=== PATIENT | female | born 1960 | race American Indian/Alaskan Native ===

== ENCOUNTER 2023-11-20 16:46 | Outpatient (CLI) | payer MEDICARE, MEDICAID, SELFPAY | END 2023-11-20 16:47 | disposition home or self-care (01) | LOC: AMB 11-25 07:01 | PROVIDERS: PCP Family Medicine; Visit Provider Student in an Organized Health Care Education/Training Program | DX: E16.2 Hypoglycemia, unspecified (principal); R53.83 Other fatigue | CPT/HCPCS: A0425; A0427 ==

== ENCOUNTER 2023-11-20 17:55 | Emergency (ER) | payer MEDICARE, MEDICAID, SELFPAY ==
[2023-11-20] VITALS (19 sets, daily range): BP systolic 128–172; BP diastolic 61–82; PULSE 87–102; RESP 18; TEMP 35.9; O2SAT 94–100
--- NOTE | 2023-11-20 19:01 | CRLHL7_ITS ---
For Patients: As a result of the Century Cures Act, medical imaging exams and procedure reports are released immediately into your electronic medical record. You may view this report before your referring provider. If you have questions, please contact your health care provider. INDICATION: Altered mental status. TECHNIQUE: Noncontrast CT images of the brain. COMPARISON: None. FINDINGS: Extensive beam hardening artifact secondary to hearing devices attached to the parieto-occipital calvarium bilaterally limits evaluation. Mild diffuse cerebral volume loss. No mass effect or midline shift. The childers-white differentiation is maintained. No large acute intracranial hemorrhage within exam limitations. No pathologic extra-axial fluid collection. Patchy hypoattenuation in the supratentorial white matter, suggestive of [id number] chronic microvascular ischemic changes. Atherosclerotic calcifications in the carotid siphons. Thinning of the ocular lenses. No calvarial fracture. The visualized paranasal sinuses are clear. Postsurgical changes of right canal wall down mastoidectomy. The left mastoid air cells and middle ear cavity are severely opacified. IMPRESSION: 1. Extensive beam hardening artifact secondary to hearing devices attached to the parieto-occipital calvarium bilaterally limits evaluation. No large acute intracranial hemorrhage within exam limitations. 2. Postsurgical changes of right canal wall down mastoidectomy. The left mastoid air cells and middle ear cavity are severely opacified. Please note that all CT scans at this facility use dose modulation, iterative reconstruction, and/or weight-based dosing when appropriate to reduce radiation dose to as low as reasonably achievable. Dictated by Mark Mcfarland MD @ 11/20/2023 8:00:07 PM (Electronically Signed)
[2023-11-20 19:14] LABS: Glucose, Point-of-Care* 222 mg/dl (60-115)
[2023-11-20 19:20] LABS: HCO3 VBG 24 mmol/L (21-28); PCO2 VBG 49 mmHG (40-50); PO2 VBG 30.3 mmHG (25-47); pH VBG 7.292 (7.32-7.43)
[2023-11-20 19:22] LABS: Basophils Percent Auto 0.1 % (0.0-3.0); Eosinophils Percent Auto 0.1 % (0.0-7.0); Hematocrit 41.9 % (33.0-51.0); Hemoglobin* 14.3 gm/dL (12.0-16.0); Immature Granulocytes Pct Auto 0.5 %; Lymphocytes Percent Auto 9.2 % (20-44); Mean Corpuscular HGB Conc 34 gm/dL (32-36); Mean Corpuscular Hemoglobin 31 pg (26-34); Mean Corpuscular Volume 90 fL (80-100); Monocytes Percent Auto 6.2 % (0.0-11.0); Neutrophils Percent Auto 83.9 % (42.0-72.0); Platelet Count* 336 K/uL (140-440); RDW Coefficient of Variation % 13.5 % (11.5-15.5); Red Blood Count 4.66 m/uL (4.00-5.20)
[2023-11-20 19:23] LABS: Lactate* 2.3 mmol/L (0.5-1.9)
[2023-11-20 19:45] LABS: Slide Review Reflex Yes; White Blood Count* 25.92 K/uL (4.50-11.00)
--- NOTE | 2023-11-20 20:21 | ED.GENADULT ---
HPI - General Adult General Chief complaint: Diabetic Related Problem Stated complaint: Hypoglycemic, blood glucose low Time Seen by Provider: 11/20/23 18:03 History of Present Illness HPI narrative: History limited by patient altered mental status. This is a 63-year-old female with a history insulin-dependent type 2 diabetes, also dementia, also distant history of substance abuse. She is brought to the ER today by EMS and accompanied by her senior care staff member. She lives at a senior care in [place]. She has been here in [place] since Sunday (for the past 3 days) visiting her long-term boyfriend, Loy. Today her senior care staff member was coming to pick her up . Her senior care staff member, Billie, called LOY when he was leaving [place]. At that time apparently everything was normal. When the senior care staff member got here to [place] he called LOY, and at that time LOY reported the patient was having trouble with low blood sugar. Truly was trying to get her to eat some peanut butter toast but her sugar was not coming up. The senior care staff member to would went to get her a liquid oral glucose source. They gave her that and she still did not improve her mental status. They called 911. 911 responded. They found patient to be altered. Her blood sugar was 46. EMS established an IV and gave her D50. Blood sugar came up to the 120s. There was some delay on scene because the patient was not able to ambulate. EMS stated called a 2nd grew to help transfer the patient down a flight of steps and [facility]. In route the patient was confused, drowsy. GCS was 14. From her senior care staff member, KHUSHI, she does have dementia and is normally disoriented to day and date. She is normally alert and talkative. The patient manages her own insulin and has visited her boyfriend multiple times in the past without any similar incidents. Her senior care staff upper does note that although her blood sugars normalized, which happens occasionally, she has never been this drowsy before. The patient arouses to voice and has a GCS of 14. Initially when I asked her if she has any problems she denies any complaints. Specifically no headache, no chest pain, no trouble breathing, no abdominal pain, no nausea, no back pain, no extremity pain. When I re-evaluate the patient she is endorsing a frontal headache. Her senior care staff member also mentions that she has had long-term hearing loss and recently had surgery on her left ear to help restore hearing. She is draining pus from that left ear and is currently on antibiotic drops. Related Data Home Medications Medication Instructions Recorded Confirmed acetaminophen 11/20/23 bupropion HCl 150 mg 24 hr tablet, 150 mg PO QAM 11/20/23 11/20/23 extended release metformin 500 mg tablet 500 mg PO BID 11/20/23 11/20/23 olanzapine 5 mg disintegrating 5 mg PO QPM 11/20/23 11/20/23 tablet trazodone 100 mg tablet 100 mg PO QPM 11/20/23 11/20/23 Allergies Allergy/AdvReac Type Severity Reaction Status Date / Time aspirin Allergy Unknown Verified 11/20/23 18:03 naproxen [From Aleve] Allergy Unknown Verified 11/20/23 18:03 tetracycline Allergy Unknown [facility]20[facility]23 [facility]03 [facility] Social History Smoking Status: Unknown if ever smoked Non-prescribed substance use: former substance user Exam Narrative: Exam Narrative: Constitutional: Appears well-developed and well-nourished. She is drowsy but arouses to voice. Seems fairly lucid for about 5 or 10 seconds and then falls asleep again. Other no miosis. Breathing normally. No hypoxia. Pulse and blood pressure stable. Not febrile. HENT: Head: Atraumatic. No depressed skull fracture, Raccoon Eyes, Paris's sign, or hemotympanum. Face normal. TMs normal healed incision on right mastoid. Right pinna, canal, TM normal. Healing incision on left mastoid. Pinnae normal. Canal filled with purulent debris. Difficult to visualize TM because of fluid. Suspicious for otitis media or possibly perforated TM with otitis media. No erythema or redness of the mastoid. Nose: Nose normal. Mouth/Throat: Oral mucosa is clear and moist. no trismus. Pharynx normal. Tonsils symmetric. No tonsillar enlargement, erythema, or exudate. Eyes: Conjunctivae normal. EOM normal. Pupils equal, round, and reactive to light. No scleral icterus. Neck: Normal range of motion. Neck supple. No tracheal deviation present. No stiffness or meningismus. Cardiovascular: Normal rate (heart rate about 100), regular rhythm. No gallop. No friction rub. No murmur heard. Symmetric radial artery pulses Pulmonary/Chest: Effort normal. No stridor. No respiratory distress. No wheezes. No rales. No rhonchi . No tenderness. Abdominal: Soft. Bowel sounds normal. No distension. No mass. No tenderness. No rebound. No guarding. Musculoskeletal: RUE: Normal range of motion. No tenderness. No deformity LUE: Normal range of motion. No tenderness. No deformity RLE: Normal range of motion. No edema. No tenderness. No deformity LLE: Normal range of motion. No edema. No tenderness. No deformity Lymph: No cervical adenopathy. Neurological: Drowsy. Arouses to voice. GCS 14. Oriented to person but not date. Not able to give me history about how long she has been visiting her boyfriend LOY.. Normal strength in both upper and both lower extremities.. CN II-VII intact. No sensory deficit. GCS eye subscore is 3. GCS verbal subscore is 5. GCS motor subscore is 6. Normal coordination Mental status normal. Attention normal. Alert and oriented x3. GCS 15. Memory normal. Speech fluent. Cognition normal. Cranial Nerves intact II-XII except I did not formally test gag or visual acuity. EOMI. Palate elevates symmetrically and tongue protrudes in the midline. Strength: 5/5 trapezius on the right and left 5/5 deltoid on the right and left 5/5 biceps on the right and left 5/5 triceps on the right and left 5/5 marketing admin on the right and left 5/5 thumb opposition on the right and left 5/5 finger abduction on the right and left 5/5 hip flexors (L3) on the right and left 5/5 quadriceps (L4) on the right and left 5/5 tibialis anterior on the right and left 5/5 EHL (L5) on the right and left 5/5 gastrocnemius (S1) on the right and left 5/5 hamstring on the right and left Sensation intact to light touch in both upper extremities (C4-T1) Sensation intact to light touch in Both lower extremities (L4-S1). Finger to nose and coordination normal. Gait not assessed due to drowsiness. Skin: Skin is warm and dry. No rash noted. No pallor. Normal capillary refill. Psychiatric: Normal mood. Normal affect. Const: Vital Signs, click to edit/add: Vital Signs - 24 hr 11/20/23 17:58 11/20/23 18:08 11/20/23 18:13 Temperature 96.6 F L Pulse Rate 98 102 H Pulse Rate [Pulse Oximeter] 100 Respiratory Rate 18 Blood Pressure 129/61 Blood Pressure [Le ft Upper Arm] 129/67 Pulse Oximetry 98 97 98 Oxygen Delivery Me thod Room Air 11/20/23 18:15 11/20/23 18:30 11/20/23 18:45 Temperature Pulse Rate 97 95 97 Pulse Rate [Pulse Oximeter] Respiratory Rate Blood Pressure Blood Pressure [Le ft Upper Arm] Pulse Oximetry 97 99 100 Oxygen Delivery Me thod 11/20/23 19:00 11/20/23 19:15 11/20/23 19:44 Temperature Pulse Rate 98 95 95 Pulse Rate [Pulse Oximeter] Respiratory Rate Blood Pressure 128/76 Blood Pressure [Le ft Upper Arm] Pulse Oximetry 99 95 97 [facility] 19:45 11/20/23 20:00 11/20/23 20:19 Temperature Pulse Rate 99 96 99 Pulse Rate [Pulse Oximeter] Respiratory Rate Blood Pressure Blood Pressure [Le ft Upper Arm] Pulse Oximetry 96 96 98 Oxygen Delivery Me thod 11/20/23 20:59 11/20/23 21:00 11/20/23 21:01 Temperature Pulse Rate 93 91 91 Pulse Rate [Pulse Oximeter] Respiratory Rate Blood Pressure 159/76 H Blood Pressure [Le ft Upper Arm] Pulse Oximetry 94 97 97 Oxygen Delivery [facility] 11/20/23 21:15 11/20/23 21:31 11/20/23 21:33 Temperature Pulse Rate 89 87 88 Pulse Rate [Pulse Oximeter] Respiratory Rate Blood Pressure 172/82 H Blood Pressure [Le ft Upper Arm] Pulse Oximetry 96 99 98 Oxygen Delivery Me od 11/20/23 21:45 Temperature Pulse Rate 89 Pulse Rate [Pulse Oximeter] Respiratory Rate Blood Pressure Blood Pressure [Le ft Upper Arm] Pulse Oximetry 99 Oxygen Delivery Me thod Course Course ED Course: Recheck-still drowsy. Not worse, not improving. GCS 14. Additional history about her ear obtained from her senior care provider. Now complaining of headache. Head CT ordered. Concern for possible meningitis causing leukocytosis and altered mental status. Ordered steroids, Rocephin, vancomycin. Will proceed with spinal tap. Discussed with the patient's senior care provider. He is not her power of employment attorney. He provided me with contact information for her power of employment attorney, emergency contact. Her name is rose Hart. Phone number [phone]. Reevaluation(s) Reevaluation #1: Recheck-repeat glucose 222. Vital Signs Vital signs: Initial Vital Signs Temperature 96.6 F L 11/20/23 17:58 Temperature Source Temporal Artery Scan 11/20/23 17:58 Pulse Rate 100 11/20/23 17:58 Respiratory Rate 18 11/20/23 17:58 Blood Pressure 129/67 11/20/23 17:58 Blood Pressure Mean 87 11/20/23 17:58 Blood Pressure Position Supine 11/20/23 17:58 Pulse Oximetry 98 11/20/23 17:58 Oxygen Delivery Method Room Air 11/20/23 17:58 Vital Signs Temperature 96.6 F L 11/20/23 17:58 Pulse Rate 100 11/20/23 17:58 Respiratory Rate 18 11/20/23 17:58 Blood Pressure 129/67 11/20/23 17:58 Pulse Oximetry 98 11/20/23 17:58 Oxygen Delivery Method Room Air 11/20/23 17:58 Temperature 96.6 F L 11/20/23 17:58 Pulse Rate 89 11/20/23 21:45 Respiratory Rate 18 11/20/23 17:58 Blood Pressure 172/82 H 11/20/23 21:33 Pulse Oximetry 99 11/20/23 21:45 Oxygen Delivery Method Room Air 11/20/23 17:58 Medications Administered Medications: Discontinued Medications Generic Name Dose Route Start Last Admin Trade Name Freq PRN Reason Stop Dose Admin Dexamethasone 10 mg 11/20/23 19:48 11/20/23 20:30 Dexamethasone 4 Mg/Ml Vial IV 11/20/23 19:49 10 mg ONCE ONE Administration Ceftriaxone Sodium 2 gm/ 100 mls @ 200 mls/hr 11/20/23 19:48 11/20/23 21:19 Sodium Chloride IVPB 11/20/23 19:49 Infused ONCE ONE Infusion Vancomycin HCl 1,500 mg/ 515 mls @ 257.5 mls/hr 11/20/23 19:48 11/20/23 22:00 Sodium Chloride IVPB 11/20/23 19:49 Not Given ONCE ONE Protocol Sodium Chloride 1,000 mls @ 1,000 mls/hr 11/20/23 19:55 11/20/23 22:01 0.9 % Sodium Chloride 1000 Ml IV 11/20/23 20:54 Infused .Q1H MARIANELA Infusion Sodium Chloride 1,000 mls @ 1,000 mls/hr 11/20/23 21:17 11/20/23 22:00 0.9 % Sodium Chloride 1000 Ml IV 11/20/23 22:16 Not Given .Q1H MARIANELA Naloxone HCl 0.2 mg 11/20/23 18:29 11/20/23 20:00 Naloxone 1 Mg/Ml Syringe IV 11/20/23 18:30 Not Given ONCE ONE Nicotine 1 patch 11/20/23 21:15 11/20/23 22:01 Nicotine 21 Mg Patch TRANSDERMA Not Given Q24H MARIANELA Medical Decision Making MDM Narrative Medical decision making narrative: 63 yo F brought to the ER today by EMS for altered mental status and hypoglycemia. 1. Endocrine. Has a known history of insulin-dependent type 2 diabetes. She does have dementia but does manage her own insulin shots when she is visiting her boyfriend. She has visited him multiple times without previous episodes of hypoglycemia. Sugar was low this afternoon when her senior care staff came to pick her up. She did not respond to typical interventions like peanut butter bread and soda. She remained persistently drowsy and altered so EMS was called. Even after EMS diagnosed her glucose in the 40s and treated with IV dextrose she maintained drowsiness with a GCS of 14. She was monitored here in the ER for several hours and had multiple repeat glucose checks and glucose remained stable/slightly elevated in the 120-220 range. No recurrent hypoglycemia. Labs do not show any evidence for DKA or hyperosmolar state. I recommend that she follow-up with her primary care provider. She needs an alternative person to at least double check her insulin administration and or have an alternative provider administer for her to avoid mistakes or inadvertent overdoses. 2. , I suspect that she may have had an unrecognized hypoglycemic seizure prior to EMS arriving and was possibly postictal for several hours while here in the ER. Initial GCS was 14 but improved to 15. While she was here in the ER she had improvement in her mental status back to her normal baseline after a few hours of observation. Her baseline does is dementia and she is not typically oriented to date. Her senior care personnel as with her indicates that she has recovered completely to her baseline alertness. Prior to discharge she is asking repeatedly to go out and smoke and wants to get home. She says she feels, ?great!? 3. Id. Consider possible infectious causes of altered mental status and hypoglycemia. When she arrived she was altered with a GCS of 14. Initially had no complaints and subsequent complaint of headache. She has evidence for recent left mastoid surgery and purulent drainage from left ear canal indicative of otitis externa. I was concerned that she may be developing mastoiditis or possibly having intracranial extension of that infection to cause intracranial abscess, subdural empyema, or meningitis. Started on empiric steroids and antibiotics. We did obtain stat CT imaging which showed no definitive abnormality. We also performed lumbar puncture which shows only 2 white cells per micro L, not a CSF pleocytosis indicative of meningitis. She does have white count 39001. Suspect that this may be demargination after a possible seizure. No other clear infection identified. Urinalysis normal. CSF normal. No abdominal pain to suggest intra-abdominal infection. No cough or hypoxia to suggest COVID, pneumonia, or respiratory infection. No evidence for skin or joint or soft tissue infection. Blood cultures were obtained during part of a workup in a currently pending. However with no fever, and clinically improving symptoms, I suspect she has very low risk for bacteremia. 4. Metabolic. VBG shows a pH is 7.29, pCO2 49. Venous lactic minimally elevated 2.3, suspect related to unwitnessed seizure. 5. Psych/tox. Alcohol level negative. Urine drug screen negative. Lab Data Labs: Lab Results 11/20/23 11/20/23 11/20/23 Range/Units 18:29 19:01 19:07 WBC 25.92 H* (4.50-11.00) K/uL RBC 4.66 (4.00-5.20) m/uL Hgb 14.3 (12.0-16.0) gm/dL Hct 41.9 (33.0-51.0) % MCV 90 (80-100) fL MCH 31 (26-34) pg MCHC 34 (32-36) gm/dL RDW Coeff of Evans 13.5 (11.5-15.5) % Plt Count 336 (140-440) K/uL Neut % (Auto) 83.9 H (42.0-72.0) % Lymph % (Auto) 9.2 L (20-44) % Parke % (Auto) 6.2 (0.0-11.0) % Eos % (Auto) 0.1 (0.0-7.0) % Baso % (Auto) 0.1 (0.0-3.0) % Neut # (Auto) 21.70 H (1.7-7.0) K/uL Lymph # (Auto) 2.40 (0.90-2.90) K/uL Parke # (Auto) 1.60 H (0.00-0.90) K/UL Eos # (Auto) 0.00 (0.00-0.50) K/uL Baso # (Auto) 0.00 (0.00-0.30) K/uL Abs Immat Gran (auto) 0.10 (0.00-0.30) K/uL Imm/Tot Granulo (auto) 0.5 % Diff Slide Review Acceptable Review (Acceptable) VBG pH 7.292 L (7.32-7.43) VBG pCO2 49 (40-50) mmHG VBG pO2 30.3 (25-47) mmHG VBG HCO3 24 (21-28) mmol/L Sodium 137 (135-149) mmol/L Potassium 4.0 (3.6-5.1) mmol/L Chloride 107 (96-114) mmol/L Carbon Dioxide 21 (20-32) mmol/L Anion Gap 9 (7-15) mEq/L BUN 14 (7-30) mg/dL Creatinine 0.9 (0.5-1.5) mg/dL Estimated GFR 73 ml/min Glucose 229 H (60-115) mg/dL Lactate 2.3 H (0.5-1.9) mmol/L Calcium 9.0 (8.4-10.6) mg/dL Total Bilirubin 0.2 (0.1-1.5) mg/dL AST 23 (12-35) U/L ALT 22 (4-35) U/L Alkaline Phosphatase 165 H (40-150) U/L Total Protein 6.5 (6.0-8.3) g/dL Albumin 3.8 (3.3-5.0) g/dL TSH 0.935 (0.270-4.200) uIU/mL Urine Color Yellow (Yellow) Urine Appearance Clear (Clear) Urine pH 6.0 (5.0-8.5) Ur Specific [place] 1.010 (1.000-1.030) Urine Protein Negative (Negative) Urine Glucose (UA) Trace A (Negative) Urine Ketones Negative (Negative) Urine Blood Negative (Negative) Urine Nitrite Negative (Negative) Urine Bilirubin Negative (Negative) Urine Urobilinogen 0.2 (0.2-1.0) Ur Leukocyte Esterase Negative (Negative) Urine RBC 2-5 A (0-2) Urine WBC 2-5 (0-5) Ur Squamous Epith Cells None (None-Few) Amorphous Sediment Few A (None) Urine Bacteria None (None) CSF Volume (0-6) mL CSF Appearance (Clear) CSF Color (Colorless) CSF WBC Cells/uL CSF RBC Cells/uL CSF Mononuclear Cells % CSF Polynuclear WBCs % CSF Glucose (40-70) Mg/dL CSF Total Protein (15-45) Mg/dL Urine Opiates Screen Negative (Negative) Ur Oxycodone Screen Negative (Negative) Urine Methadone Screen Negative (Negative) Ur Propoxyphene Screen Negative (Negative) Ur Barbiturates Screen Negative (Negative) U Tricyclic Antidepress Negative (Negative) Ur Phencyclidine Scrn Negative (Negative) Ur Amphetamines Screen Negative (Negative) U Methamphetamines Scrn Negative (Negative) U Benzodiazepines Scrn Negative (Negative) Urine Cocaine Screen Negative (Negative) U Marijuana (THC) Screen Negative (Negative) Ur Drug Screen Comment See Note Ethyl Alcohol < 0.01 L (0.01-0.03) % POC Glucose 222 H (60-115) mg/dl 11/20/23 11/20/23 Range/Units 20:56 21:58 WBC (4.50-11.00) K/uL RBC (4.00-5.20) m/uL Hgb (12.0-16.0) gm/dL Hct (33.0-51.0) % MCV (80-100) fL MCH (26-34) pg MCHC (32-36) gm/dL RDW Coeff of Evans (11.5-15.5) % Plt Count (140-440) K/uL Neut % (Auto) (42.0-72.0) % Lymph % (Auto) (20-44) % Parke % (Auto) (0.0-11.0) % Eos % (Auto) (0.0-7.0) % Baso % (Auto) (0.0-3.0) % Neut # (Auto) (1.7-7.0) K/uL Lymph # (Auto) (0.90-2.90) K/uL Parke # (Auto) (0.00-0.90) K/UL Eos # (Auto) (0.00-0.50) K/uL Baso # (Auto) (0.00-0.30) K/uL Abs Immat Gran (auto) (0.00-0.30) K/uL Imm/Tot Granulo (auto) % Diff Slide Review (Acceptable) VBG pH (7.32-7.43) VBG pCO2 (40-50) mmHG VBG pO2 (25-47) mmHG VBG HCO3 (21-28) mmol/L Sodium (135-149) mmol/L Potassium (3.6-5.1) mmol/L Chloride (96-114) mmol/L Carbon Dioxide (20-32) mmol/L Anion Gap (7-15) mEq/L BUN (7-30) mg/dL Creatinine (0.5-1.5) mg/dL Estimated GFR ml/min Glucose (60-115) mg/dL Lactate (0.5-1.9) mmol/L Calcium (8.4-10.6) mg/dL Total Bilirubin (0.1-1.5) mg/dL AST (12-35) U/L ALT (4-35) U/L Alkaline Phosphatase (40-150) U/L Total Protein (6.0-8.3) g/dL Albumin (3.3-5.0) g/dL TSH (0.270-4.200) uIU/mL Urine Color (Yellow) Urine Appearance (Clear) Urine pH (5.0-8.5) Ur Specific [place] (1.000-1.030) Urine Protein (Negative) Urine Glucose (UA) (Negative) Urine Ketones (Negative) Urine Blood (Negative) Urine Nitrite (Negative) Urine Bilirubin (Negative) Urine Urobilinogen (0.2-1.0) Ur Leukocyte Esterase (Negative) Urine RBC (0-2) Urine WBC (0-5) Ur Squamous Epith Cells (None-Few) Amorphous Sediment (None) Urine Bacteria (None) CSF Volume 4.0 (0-6) mL CSF Appearance Clear (Clear) CSF Color Colorless (Colorless) CSF WBC 2 Cells/uL CSF RBC 0 Cells/uL CSF Mononuclear Cells 100 % CSF Polynuclear WBCs 0 % CSF Glucose 77 H (40-70) Mg/dL CSF Total Protein 76 H (15-45) Mg/dL Urine Opiates Screen (Negative) Ur Oxycodone Screen (Negative) Urine Methadone Screen (Negative) Ur Propoxyphene Screen (Negative) Ur Barbiturates Screen (Negative) U Tricyclic Antidepress (Negative) Ur Phencyclidine Scrn (Negative) Ur Amphetamines Screen (Negative) U Methamphetamines Scrn (Negative) U Benzodiazepines Scrn (Negative) Urine Cocaine Screen (Negative) U Marijuana (THC) Screen (Negative) Ur Drug Screen Comment Ethyl Alcohol (0.01-0.03) % POC Glucose 241 H (60-115) mg/dl Imaging Data CT scan - head: Attestation: I have reviewed the pertinent imaging results. My impression: no obvious mass, ICH, fluid, or midline shift Radiologist's impression: IMPRESSION: 1. Extensive beam hardening artifact secondary to hearing devices attached to the parieto-occipital calvarium bilaterally limits evaluation. No large acute intracranial hemorrhage within exam limitations. 2. Postsurgical changes of right canal wall down mastoidectomy. The left mastoid air cells and middle ear cavity are severely opacified. Discharge Plan Discharge Clinical Impression: Acute alteration in mental status, Hypoglycemia, Leukocytosis Patient Disposition: Home, Self-Care Condition: Stable Instructions: Altered Mental Status (ED), What to Do if Your Blood Sugar is Low (ED) Additional Instructions: He please monitor your blood sugar every 4 hours overnight and then as per your normal routine tomorrow. If you have any blood sugar lower than 100, please eat or drink a source of sugar. If you have drowsiness, altered mental status, blood sugar less than 80, headache or other concerns, call 911 right away. Continue on your antibiotic drops for her left ear and see your your surgeon as soon as possible. Please follow-up with your regular doctor for a recheck within the next 3-4 days. You may need to adjust your insulin regimen or have an additional provider check your dose of insulin. Prescriptions: No Action metformin 500 mg tablet 500 mg PO BID trazodone 100 mg tablet 100 mg PO QPM olanzapine 5 mg tablet,disintegrating 5 mg PO QPM bupropion HCl 150 mg tablet extended release 24 hr 150 mg PO QAM acetaminophen Follow Up/Referrals: Jonathan Sanders MD [Primary Care Provider] - Stand Alone Forms: [employer] [facility] Instructions Procedures Lumbar Puncture Pre procedure diagnosis: Altered mental status, leukocytosis, headache, left ear infection Post procedure diagnosis: Altered mental status Written consent by: guardian (Verbal consent consent obtained over the phone from her emergency guardian, Radha Hart) Verification/time out: correct patient, correct site and correct procedure Reason for procedure: diagnostic Patient Position: upright Skin preparation: betadine Local Anesthetic: lidocaine 2% Amount of anesthesia used (mL): 5 Spinal Needle Gauge: 22G Interspace Used: L3-L4 Number of attempts: 1 Fluid Initially Obtained: clear Estimated blood loss (if any): none Specimens removed (if any): Total of 8 mL of clear CSF Complications: none Conclusion: patient tolerated procedure
[2023-11-20] MEDS: cefTRIAXone 2 GM in 0.9 % SODIUM CHLORIDE Mini-bag 100 ML IVPB (20:29)
[2023-11-20] MEDS: 0.9 % SODIUM CHLORIDE 1000 ml 1,000 ML IV (20:29)
[2023-11-20] MEDS: dexAMETHasone 4 MG/ML VIAL 10 MG IV (20:30)
[2023-11-20 20:32] LABS: TSH With Reflex to FT4* 0.935 uIU/mL (0.270-4.200)
[2023-11-20 20:46] LABS: Ethanol* < 0.01 % (0.01-0.03)
[2023-11-20 20:47] LABS: Albumin* 3.8 g/dL (3.3-5.0); Chloride* 107 mmol/L (96-114); Sodium* 137 mmol/L (135-149)
[2023-11-20 20:49] LABS: Creatinine* 0.9 mg/dL (0.5-1.5); Estimated Glomerular Filt Rate 73 ml/min
[2023-11-20 20:50] LABS: Alanine Aminotransferase* 22 U/L (4-35); Alkaline Phosphatase* 165 U/L (40-150); Anion Gap 9 mEq/L (7-15); Aspartate Amino Transferase* 23 U/L (12-35); Bilirubin Total* 0.2 mg/dL (0.1-1.5); Blood Urea Nitrogen* 14 mg/dL (7-30); Carbon Dioxide* 21 mmol/L (20-32); Glucose* 229 mg/dL (60-115); Total Protein* 6.5 g/dL (6.0-8.3)
[2023-11-20 21:08] LABS: Appearance CSF Clear (Clear); Color CSF Colorless (Colorless)
[2023-11-20 21:22] LABS: CSF Mononuclear Cells 100 %; CSF Polynuclear Cells 0 %; RBC, CSF 0 Cells/uL; WBC, CSF 2 Cells/uL
[2023-11-20 21:42] LABS: Appearance Urine Clear (Clear); Bilirubin Urine Negative (Negative); Blood Urine Negative (Negative); Color Urine Yellow (Yellow); Glucose Urine Trace (Negative); Ketones Urine Negative (Negative); Leukocyte Esterase Urine Negative (Negative); Nitrite Urine Negative (Negative); Protein Urine Negative (Negative); Urobilinogen Urine 0.2 (0.2-1.0)
[2023-11-20 21:45] LABS: Glucose, CSF* 77 Mg/dL (40-70); Total Protein, CSF 76 Mg/dL (15-45)
[2023-11-20 21:59] LABS: Glucose, Point-of-Care* 241 mg/dl (60-115)
[2023-11-20 22:02] LABS: Slide Review Acceptable Review (Acceptable)
[2023-11-20 22:11] LABS: Amphetamine Screen Urine Negative (Negative); Barbiturate Screen Urine Negative (Negative); Benzodiazepines Screen Urine Negative (Negative); Cannabinoid Screen Urine Negative (Negative); Cocaine Screen Urine Negative (Negative); Methadone Screen Urine Negative (Negative); Methamphetamines Screen Urine Negative (Negative); Opiate Screen Urine Negative (Negative); Oxycodone Screen Urine Negative (Negative); Phencyclidine Screen Urine Negative (Negative); Tricyclic Antidepressant Urine Negative (Negative)
[2023-11-20 22:18] LABS: Amorphous Sediment Urine Few
[2023-11-23 15:57] LABS: HSV 1 Subtype by PCR Not Detected; HSV 2 Subtype by PCR Not Detected; Herpes Simplex Subtype Source CSF
== END 2023-11-20 22:53 | disposition home or self-care (01) ==
PROVIDERS: Emergency Provider Emergency Medicine; PCP Family Medicine
DX: R41.82 Altered mental status, unspecified (principal); E16.2 Hypoglycemia, unspecified; D72.829 Elevated white blood cell count, unspecified
CPT/HCPCS: 36415; 62270; 70450; 80053; 80306; 80323; 81001; 82077; 82803; 82945; 82947; 82962; 83605; 84157; 84443; 85025; 87040; 87070; 87529; 89051; 96365; 96375; 99284; 99285; J0696; J1100; J7030